=== PATIENT | female | born 1975 | race American Indian/Alaskan Native ===

== ENCOUNTER 2019-07-15 07:07 | Observation (INO) | payer OTHER ==
--- NOTE | 2019-07-13 11:54 | Anesthesia Consultation ---
Anesthesia Consult and Med Hx Date of service: 07/15/19 - Airway Anesthetic Teeth Evaluation: Good, Caps ROM Head & Neck: Adequate Mental/Hyoid Distance: Adequate Mallampati Class: Class II Intubation Access Assessment: Probably Good - Pre-Operative Health Status ASA Pre-Surgery Classification: ASA2 Proposed Anesthetic Plan: General Nerve Block: TAP - Cardiovascular System Hx Hypertension: Yes (x 5 yrs) - Central Nervous System Hx Psychiatric Problems: No - Hematic Hx Anemia: Yes (For Iron infusion 07/11/19) - Other Systems Hx Cancer: No - Additional Comments Anesthesia Medical History Comments: +PCP and cardiac clearance. Ran out of BP meds and went to ER because of elevated BP. Meds changed and better BP now
[2019-07-13 11:56] LABS: Basophils # (Auto) 0.1 K/mm3 (0.0-0.1); Basophils % (Auto) 1.5 % (0.0-1.8); Eosinophils # (Auto) 0.1 K/mm3 (0.0-0.4); Eosinophils % (Auto) 1.9 % (0.0-4.3); Hemoglobin 8.4 gm/dl (10.1-14.3); Lymphocytes # (Auto) 1.6 K/mm3 (1.2-5.4); Mean Corpuscular HGB Conc 30 % (30-34); Monocytes # (Auto) 0.7 K/mm3 (0.0-0.8); Monocytes % (Auto) 10.7 % (0.0-7.3); Platelet Count 475 K/mm3 (140-440); Red Blood Count 4.72 M/mm3 (3.65-5.03)
[2019-07-13 12:04] LABS: Calcium 9.7 mg/dL (8.4-10.2); Mean Corpuscular Volume 59 fl (79-97); Red Cell Distribution Width 21.5 % (13.2-15.2)
--- NOTE | 2019-07-14 17:27 | History and Physical Report ---
History of Present Illness Date of examination: 07/13/19 History of present illness: This is a 44 years old female who complains of continued menorrhagia and dysmenorrhea with the Mirena IUD that was placed for menorrhagia. Uses more than one pad per hour with additional use of tampon. Previously prescribed OCPs to take concurrently, but reports causes extended menses as long as two weeks at a time. Bleeds heavy 4/7days, she saturates a pad every hour on her heaviest days and even then will bleed into her clothes. Since having the Mirena placed she bleeds 2x/mnth occasionally.IUD removed 2015. With history of uncontrolled hypertension and no desire for fertility she now desires to proceed with hysterectomy. Past History : 1 Term Births: 0 Premature Births: 0 Living Children: 1 Para: 1 Mult. Births: 0 Prev : 1 Aborta: 0 Elect. Ab: 0 Spont. Ab: 0 Ectopics: 0 # 1 Delivery date: 1992 Delivery type: Sex: Male Comments: done for distress [employer] History Uterine Surgery (not C/S): negative Operations: (B) bunionectomy Hospitalizations: negative Anesthesia Complications: negative Abnormal PAP: negative Uterine Anomaly: negative MAXIMUS Exposure: negative Infertility: negative Infection History HIV Risk Eval: no TB exposure: no Personal hx. of genital herpes: no Partner hx. of genital herpes: no Rash/viral illness since LMP: no Hx of STD: None Active Medications (reviewed today): POTASSIUM CHLORIDE ER 10 MEQ ORAL TABLET EXTENDED RELEASE (POTASSIUM CHLORIDE) AMLODIPINE BESYLATE 10 MG ORAL TABLET (AMLODIPINE BESYLATE) FERROUS SULFATE 325 (65 FE) MG ORAL TABLET (FERROUS SULFATE) 1 po bid TRANEXAMIC ACID 650 MG ORAL TABLET (TRANEXAMIC ACID) 1300 mg(2 tabs) 3 times daily (3900 mg daily) for up to 5 days during monthly menstruation HYDROCHLOROTHIAZIDE 25 MG ORAL TABLET (HYDROCHLOROTHIAZIDE) 1 po qd Current Allergies (reviewed today): No known allergies Past Medical History: Reviewed history from 06/08/2019 and no changes required: Hypertension Anemia Past Surgical History: Reviewed history from 06/08/2019 and no changes required: (B) bunionectomy Family History Summary: Reviewed history Last on 03/25/2019 and no changes required:07/14/2019 Aunt - Has Family History Breast Cancer - maternal, - Entered On: 06/08/2019 Uncle - Has Family History of Stomach Cancer - maternal - Entered On: 06/08/2019 Father (biol.) - Has Family History of Pancreatic Cancer - age 49 - Entered On: 06/08/2019 Aunt - Has Family History of Stomach Cancer - paternal - Entered On: 06/24/2019 Aunt - Has Family History of Lung Cancer - paternal - Entered On: 07/13/2019 Other family member - Has No Family History of Biliary Tract Cancer - Entered On: 07/14/2019 Other family member - Has No Family History of Brain Cancer - Entered On: 09/13/2018 Other family member - Has No Family History of Colon Cancer - Entered On: 07/14/2019 Other family member - Has No Family History of Spontaneous DVT-PE - Entered On: 07/14/2019 Other family member - Has No Family History of Kidney/Urinary Tract Cancer - Entered On: 07/14/2019 Other family member - Has No Family History of Ovarvian Cancer - Entered On: 07/14/2019 Other family member - Has No Family History of Small Bowel Cancer - Entered On: 07/14/2019 Other family member - Has No Family History of Uterine Cancer - Entered On: 07/14/2019 General Comments - FH: Paternal aunt throat cancer Social History: Reviewed history from 06/08/2019 and no changes required: Patient is Smoking History: Patient has never smoked. Risk Factors: Smoked Tobacco Use: Never smoker Smokeless Tobacco Use: Never Passive smoke exposure: no Drug use: no HIV high-risk behavior: no Caffeine use: 0 drinks per day Alcohol use: no Exercise: no Seatbelt use: 100 % PAP Smear History: Date of Last PAP Smear: 03/16/2019 Previous Tobacco Use: Signed On - 06/08/2019 Smoked Tobacco Use: Never smoker Smokeless Tobacco Use: Never Passive smoke exposure: no Drug use: no HIV high-risk behavior: no Caffeine use: 1 drinks per day Previous Alcohol Use: Signed On - 06/08/2019 Alcohol use: no Exercise: no Seatbelt use: 100 % PAP Smear History: Date of Last PAP Smear: 03/16/2019 Physical Exam Appearance: well developed, well nourished, no acute distress Other Exams Lungs: no rales, rhonchi, or wheezes Heart: S1, S2, no murmur, rub, or gallop Abdomen: soft, non-tender, no masses, Genitourinary Exam Uterus: deferred for EUA Impression & Recommendations: Problem # 1: Excessive and frequent menstruation with irregular cycle (ICD- 626.6) (CCF76-F66.1) Diagnosis explained to patient . Discussed with patient various medical, surgical and radiological therapies common for treatment including, but not limited to, myomectomy, hysterectomy and uterine artery embolization. Discussed risks and benefits of laparotomy, laparoscopy, vaginal and robotic assisted approaches for hysterectomies. Patient desires definitive treatment in the form of robot assisted laparoscopic total hysterectomy. The risks and alternatives for this surgery were reviewed with the patient. She was informed of the risks of the surgery including, but not limited to, pain, infection, bleeding possibly heavy enough to require a blood transfusion with associated ri sks of infections (hepatitis and HIV) and transfusion reactions, possible damage to bowel, bladder or ureter(s). Patient understands that this surgery will make her sterile. Indications to abort a robotic/laparoscopic procedure and perform an open procedure were explained. Patient understands if her ovaries are removed she will become menopausal Questions answered. Consent reviewed and signed The patient was instructed/informed the following: The normal length of hospital stay for this procedure. Nothing to eat or drink after midnight the evening prior to surgery. Clear liquids the day before surgery. Pre-op instruction sheets given. Wound care instructions given. Problem # 2: Anemia secondary to blood loss (chronic) (ICD-280.0) (MVT28-A91.0) Problem # 3: Family History Breast Cancer (ICD-V16.3) (KOO05-G11.3) She desires ovarian conservation. She was informed she may require surgery later to have her ovaries removed for a benign or mailgnant condition. She declines hereditary cancer testing prior to surgery and understands she may be at a higher risk for devleoping ovarian cancer than the general population. Limitations for ovarian cancer screening emphasized and likelihood of late stage detection of ovarian cancer due these limitations that leads to poor prognosis emphasized. Patient voiced understanding and agrees with plan of care Medications Added to Medication List This Visit: 1) Potassium Chloride Er 10 Meq Oral Tablet Extended Release (Potassium chloride) 2) Amlodipine Besylate 10 Mg Oral Tablet (Amlodipine besylate) Medications and Allergies Allergies Allergy/AdvReac Type Severity Reaction Status Date / Time No Known Allergies Allergy Unverified 07/05/19 18:01 Home Medications Medication Instructions Recorded Confirmed Last Taken Type amLODIPine [Norvasc] 10 mg PO DAILY 07/05/19 07/05/19 Unknown History hydroCHLOROthiazide [HCTZ] 25 mg PO QDAY 07/05/19 07/05/19 Unknown History Potassium Chloride 10 meq PO DAILY 07/13/19 07/13/19 Unknown History Exam Vital Signs Temp Pulse Resp BP Pulse Ox 98.9 F 96 H 20 135/94 100 07/13/19 11:25 07/13/19 11:25 07/13/19 11:25 07/13/19 11:25 07/13/19 11:25 Results - Labs 07/13/19 11:44 07/13/19 11:44 Assessment and Plan - Patient Problems (1) Excessive and frequent menstruation with irregular cycle Status: Acute (2) Anemia, blood loss Status: Acute (3) Hypertension Status: Chronic (4) Adult BMI 31.0-31.9 kg/sq m Status: Chronic
[2019-07-15] MEDS ORDERED: BACTERIOSTATIC SODIUM CHLORIDE 0.9% 30 ML VIAL INFILTRATI ONE (07:29)
[2019-07-15] MEDS ORDERED: LACTATED RINGERS 1,000 ML ONE (07:30)
[2019-07-15] MEDS ORDERED: HYDROmorphone 1 MG/1 ML INJ IV PRN (08:12)
[2019-07-15] MEDS ORDERED: fentaNYL 100 MCG/2 ML INJ IV NR (08:12)
--- NOTE | 2019-07-15 08:12 | Anesthesia Day of Surgery ---
Anesthesia Day of Surgery - Day of Surgery Patient Examined: Yes Patient H&P Reviewed: Yes Patient is NPO: Yes
[2019-07-15] MEDS ORDERED: cloNIDine/PF 1,000 MCG/10 ML VIAL EP ONE (08:16)
[2019-07-15] MEDS ORDERED: BUPIVACAINE-EPINEPHRINE/PF 0.25%-1:200,000 (30 ML) VIAL INFILTRATI ONE (08:16)
[2019-07-15] MEDS ORDERED: dexAMETHasone 4 MG/ML VIAL ONE (08:16)
[2019-07-15] MEDS ORDERED: LACTATED RINGERS 1,000 ML IV SCH ×2 (09:00→15:36)
[2019-07-15] MEDS ORDERED: CELECOXIB 200 MG CAP PO NR (09:00)
[2019-07-15] MEDS ORDERED: MIDAZOLAM 2 MG/2 ML INJ IV NR (09:00)
[2019-07-15] MEDS ORDERED: GABAPENTIN 300 MG CAP PO NR (09:00)
[2019-07-15] MEDS ORDERED: ceFAZolin/STERILE WATER 2 GM/20 ML SYRINGE IV NR (11:00)
[2019-07-15] MEDS ORDERED: HYDROmorphone 1 MG/1 ML INJ ONE ×2 (11:01→14:30)
[2019-07-15] MEDS ORDERED: LIDOCAINE MPF (2%) 20 MG/1 ML VIAL 5 ML ONE (11:01)
[2019-07-15] MEDS ORDERED: PROPOFOL 200 MG/20 ML VIAL IV ONE (11:02)
[2019-07-15] MEDS ORDERED: ROCURONIUM 50 MG/5 ML INJ IV ONE (11:03)
[2019-07-15] MEDS ORDERED: NEOMY 40 MG/POLYMYXIN B 200,000 UNITS/ML (GU) AMPULE IR ONE ×3 (11:10→12:24)
[2019-07-15] MEDS ORDERED: SODIUM CHLORIDE 0.9% IRRIG SOLN 2000 ML IR ONE (12:24)
[2019-07-15] MEDS ORDERED: ONDANSETRON 4 MG/2 ML INJ ONE (13:09)
[2019-07-15] MEDS ORDERED: NEOSTIGMINE 10MG/10 ML INJ MDV ONE (13:09)
[2019-07-15] MEDS ORDERED: GLYCOPYRROLATE 0.4 MG/2 ML INJ ONE (13:09)
[2019-07-15] MEDS ORDERED: KETOROLAC 30 MG/1 ML INJ ONE (13:09)
[2019-07-15] MEDS ORDERED: ESMOLOL 100 MG/10 ML INJ IV ONE (13:09)
--- NOTE | 2019-07-15 13:35 | Operative Report ---
Operative Report Operative Report: Date: 07/15/2019 Preoperative diagnosis: 1. Menorrhagia 2. Chronic anemia due to blood loss 3. Body mass index of 30 kg/m 4. Chronic hypertension Postoperative diagnosis: 1. Menorrhagia 2. Chronic anemia due to blood loss 3. Body mass index of 30 kg/m 4. Chronic hypertension 5. Pelvic adhesions Procedure: 1. Robotic-assisted laparoscopic total hysterectomy with bilateral salpingectomy 2. Lysis of pelvic adhesions Surgeon: Martha Sampson MD Ceramics Teacher: Yenni Forde Anesthesiologist: Dr. Rolle Anesthesia: General endotracheal anesthesia EBL: Approximately minimum mL Findings: Uterus was sounded to 12 cm. Grossly normal tubes and left ovary. Enlarged right ovary consistent with simple ovarian cyst. Pelvic adhesions involving omentum to the anterior abdominal wall and anterior uterus adhered to the anterior abdominal wall as well. Procedure: Patient was taken to the OR and placed in the supine position. General anesthesia was induced and an oral gastric tube was placed. Her neck and head were placed on foam support. Foam eye protection with goggles were secured in place. Then foam face protection was placed and secured. Foam shoulder pads were then positioned on her shoulders for Trendelenburg positioning. She was then placed in dorsolithotomy position. Exam under anesthesia unremarkable, however difficult to palpate due to body mass index. The abdomen and vagina were then prepped and draped in the usual sterile fashion. Timeout was performed. A Bui catheter was inserted into the bladder with drainage of clear yellow urine. The operative speculum was introduced into the vagina and the anterior lip of the cervix was grasped with single-toothed tenaculum. The uterus was sounded to 12 cm. The cervix was progressively dilated to allow the medium V care uterine manipulator. The bulb of the manipulator was inflated and the speculum and tenaculum were removed. The cup of the manipulator was placed around the cervix and the blue occluder of the manipulator was properly positioned in the vagina. A laparotomy sponge that was saturated with a solution of polymyxin and saline was placed in the vagina to ensure pneumoperitoneum. Sterile gloves were placed and attention was turned to the abdomen. A 10 mm midline vertical supraumbilical incision was made approximately 10 cm superior to the elevated fundus of the uterus. A 12 mm trocar with the laparoscope and camera attached was introduced through this incision under direct visualization. The abdomen was insufflated. No obvious bowel, bladder, ureteral, or major vascular injury was noted. The patient was then placed in steep Trendelenburg position and the following trochars were placed under direct visualization: 8 mm robotic trochars were placed through incisions made in the bilateral midclavicular lower abdominal region approximately 10 cm lateral to the midline incision, and a 5 mm trocar was placed through an incision made in the right lower lateral pelvis. The 10 mm laparoscope was then replaced by a 5 mm laparoscope that was placed through the 5 millimeter lateral trocar. The 12 mm trocar was then removed and the Slava Roman fascial closure device was p laced through the incision and a 0 Vicryl was placed through the fascia. Once the suture was secured the 12 mm trocar was reintroduced. Once the trochars were in the appropriate positions, the da Petty robot system was engaged. The EndoShears and bipolar device was placed through the 8 mm trochars and positioned then attention was turned to the console. Omental tissue was attached to anterior abdominal wall. These adhesions were released without any complication. The uterus was elevated and bilateral salpingectomy was performed. Each tube was removed through the 5 mm trocar and sent to pathology in separate containers. Then the utero-ovarian ligaments were clamped. cauterized and incised bilaterally using 30 W of energy. Then the round ligaments were clamped, cauterized and incised bilaterally. The anterior uterine adhesion was released without any complication. The anterior leaf of the broad ligament was elevated and with careful blunt and sharp dissection the bladder flap was created and dissected away from the lower uterine segment and cervix. The posterior leaf of the broad ligament was dissected away from the uterine vessels. The cup of the uterine manipulator was palpated both anteriorly and posteriorly. The uterine vessels were then clamped and cauterized bilaterally. Blanching of the uterus was then noted. Attention was again turned to the anterior lower uterine segment and the bladder was confirmed to be away from the operative field. Then attention was turned again to the posterior where the cup of the manipulator was palpated and a colpotomy was performed down to the cup. The incision was extended in the lateral position to the uterine vessels that were again clamped and cauterized and incised. Continuing along the cup of the manipulator in a circumferential manner the colpotomy was completed. The uterus and cervix were then removed through the vaginal incision. The pelvis was irrigated with warm normal saline. A moist laparotomy sponge was placed in the vagina to maintain pneumoperitoneum. Attention was turned to the right ovary that was elevated and ovarian cystectomy was performed. The cyst were removed through the vagina. The pelvis was again copiously irrigated with warm normal saline. Hemostasis was obtained on the ovary with coagulation. The vagina cuff was reapproximated using V LOC 180 suture. Then a J stitch was performed to secure the suture. Again the pelvis was copiously irrigated with polymixin in warm normal saline. The laparotomy sponge was removed from the vagina. No obvious evidence of bowel, bladder, ureteral, or major vascular injury was noted. Once hemostasis was noted, platelet rich plasma was applied to the operative field to ensure hemostasis. Then platelet poor plasma was applied to the operative field to decrease formation of adhesions. Interceed was placed around both ovaries. Again hemostasis was noted. Then the instruments were removed, the robot was disengaged. The 12 mm trocar was removed and the fascia was ligated with the 0 Vicryl suture that was placed at the beginning of the procedure. The patient was taken out of Trendelenburg position, the abdomen was desufflated, the remaining trochars were removed. Incisions were reapproximated using 4-0 Monocryl in a subcuticular manner. . Surgiseal was placed over the other incisions. The vagina was then inspected, the cuff was palpated to be intact and no bleeding was noted and clear yellow urine was draining into the Bui bag from the bladder at the end of the procedure. Counts were correct 3.Patient was taken to recovery room in stable condition.
[2019-07-15] MEDS ORDERED: METOCLOPRAMIDE 10 MG TAB PO PRN (15:36)
[2019-07-15] MEDS ORDERED: ONDANSETRON 4 MG ODT TAB PO PRN (15:36)
[2019-07-15] MEDS ORDERED: ACETAMINOPHEN 325 MG TAB PO PRN (15:36)
[2019-07-15] MEDS ORDERED: MORPHINE 2 MG/1 ML INJ IV PRN (15:36)
[2019-07-15] MEDS ORDERED: ONDANSETRON 4 MG/2 ML INJ IV PRN (15:36)
[2019-07-15] MEDS ORDERED: METOCLOPRAMIDE 10 MG/2 ML INJ IV PRN (15:36)
[2019-07-15] MEDS ORDERED: ACETAMINOPHEN 650 MG RECT SUPP PR PRN (15:36)
[2019-07-15] MEDS ORDERED: MORPHINE 4 MG/1 ML INJ IV PRN (15:36)
--- NOTE | 2019-07-15 19:40 | Progress Note ---
Assessment and Plan Operative findings and procedure explained, plan of care discussed, questions encouraged and answered, she voiced understanding - Patient Problems (1) Excessive and frequent menstruation with irregular cycle Current Visit: No Status: Acute (2) Anemia, blood loss Current Visit: No Status: Acute (3) Hypertension Current Visit: No Status: Chronic (4) Adult BMI 31.0-31.9 kg/sq m Current Visit: No Status: Chronic Subjective - Subjective Date of service: 07/15/19 Principal diagnosis: DOS, s/p RALTH, (R) ov cystectomy, CHIDI, (B) salpingectomy Interval history: This is a 44 years old female who complains of continued menorrhagia and dysmenorrhea with the Mirena IUD that was placed for menorrhagia. Uses more than one pad per hour with additional use of tampon. Previously prescribed OCPs to take concurrently, but reports causes extended menses as long as two weeks at a time. Bleeds heavy 4/7days, she saturates a pad every hour on her heaviest days and even then will bleed into her clothes. Since having the Mirena placed she bleeds 2x/mnth occasionally.IUD removed 2015. With history of uncontrolled hypertension and no desire for fertility she now desires to proceed with hysterectomy. Past History : 1 Term Births: 0 Premature Births: 0 Living Children: 1 Para: 1 Mult. Births: 0 Prev : 1 Aborta: 0 Elect. Ab: 0 Spont. Ab: 0 Ectopics: 0 # 1 Delivery date: 1992 Delivery type: Infant Sex: Male Comments: done for distress [employer]ING [employer]INE [employer] History Uterine Surgery (not C/S): negative Operations: (B) bunionectomy Hospitalizations: negative Anesthesia Complications: negative Abnormal PAP: negative Uterine Anomaly: negative MAXIMUS Exposure: negative Infertility: negative Infection History HIV Risk Eval: no TB exposure: no Personal hx. of genital herpes: no Partner hx. of genital herpes: no Rash/viral illness since LMP: no Hx of STD: None Active Medications (reviewed today): POTASSIUM CHLORIDE ER 10 MEQ ORAL TABLET EXTENDED RELEASE (POTASSIUM CHLORIDE) AMLODIPINE BESYLATE 10 MG ORAL TABLET (AMLODIPINE BESYLATE) FERROUS SULFATE 325 (65 FE) MG ORAL TABLET (FERROUS SULFATE) 1 po bid TRANEXAMIC ACID 650 MG ORAL TABLET (TRANEXAMIC ACID) 1300 mg(2 tabs) 3 times daily (3900 mg daily) for up to 5 days during monthly menstruation HYDROCHLOROTHIAZIDE 25 MG ORAL TABLET (HYDROCHLOROTHIAZIDE) 1 po qd Current Allergies (reviewed today): No known allergies Past Medical History: Reviewed history from 06/08/2019 and no changes required: Hypertension Anemia Past Surgical History: Reviewed history from 06/08/2019 and no changes required: (B) bunionectomy Family History Summary: Reviewed history Last on 03/25/2019 and no changes required:07/14/2019 Aunt - Has Family History Breast Cancer - maternal, - Entered On: 06/08/2019 Uncle - Has Family History of Stomach Cancer - maternal - Entered On: 06/08/2019 Father (biol.) - Has Family History of Pancreatic Cancer - age 49 - Entered On: 06/08/2019 Aunt - Has Family History of Stomach Cancer - paternal - Entered On: 06/24/2019 Aunt - Has Family History of Lung Cancer - paternal - Entered On: 07/13/2019 Other family member - Has No Family History of Biliary Tract Cancer - Entered On: 07/14/2019 Other family member - Has No Family History of Brain Cancer - Entered On: 07/14/2019 Other family member - Has No Family History of Colon Cancer - Entered On: 07/14/2019 Other family member - Has No Family History of Spontaneous DVT-PE - Entered On: 07/14/2019 Other family member - Has No Family History of Kidney/Urinary Tract Cancer - Entered On: 07/14/2019 Other family member - Has No Family History of Ovarvian Cancer - Entered On: 07/14/2019 Other family member - Has No Family History of Small Bowel Cancer - Entered On: 07/14/2019 Other family member - Has No Family History of Uterine Cancer - Entered On: 07/14/2019 General Comments - FH: Paternal aunt throat cancer Social History: Reviewed history from 06/08/2019 and no changes required: Patient is Smoking History: Patient has never smoked. Risk Factors: Smoked Tobacco Use: Never smoker Smokeless Tobacco Use: Never Passive smoke exposure: no Drug use: no HIV high-risk behavior: no Caffeine use: 0 drinks per day Alcohol use: no Exercise: no Seatbelt use: 100 % PAP Smear History: Date of Last PAP Smear: 03/16/2019 Previous Tobacco Use: Signed On - 06/08/2019 Smoked Tobacco Use: Never smoker Smokeless Tobacco Use: Never Passive smoke exposure: no Drug use: no HIV high-risk behavior: no Caffeine use: 1 drinks per day Previous Alcohol Use: Signed On - 06/08/2019 Alcohol use: no Exercise: no Seatbelt use: 100 % PAP Smear History: Date of Last PAP Smear: 03/16/2019 Physical Exam Appearance: well developed, well nourished, no acute distress Other Exams Lungs: no rales, rhonchi, or wheezes Heart: S1, S2, no murmur, rub, or gallop Abdomen: soft, non-tender, no masses, Genitourinary Exam Uterus: deferred for EUA Impression & Recommendations: Problem # 1: Excessive and frequent menstruation with irregular cycle (ICD- 626.6) (SGP39-X92.1) Diagnosis explained to patient . Discussed with patient various medical, surgical and radiological therapies common for treatment including, but not limited to, myomectomy, hysterectomy and uterine artery embolization. Discussed risks and benefits of laparotomy, laparoscopy, vaginal and robotic assisted approaches for hysterectomies. Patient desires definitive treatment in the form of robot assisted laparoscopic total hysterectomy. The risks and alternatives for this surgery were reviewed with the patient. She was informed of the risks of the surgery including, but not limited to, pain, infection, bleeding possibly heavy enough to require a blood transfusion with associated risks of infections (hepatitis and HIV) and transfusion reactions, possible damage to bowel, bladder or ureter(s). Patient understands that this surgery will make her sterile. Indications to abort a robotic/laparoscopic procedure and perform an open procedure were explained. Patient understands if her ovaries are removed she will become menopausal Questions answered. Consent reviewed and signed The patient was instructed/informed the following: The normal length of hospital stay for this procedure. Nothing to eat or drink after midnight the evening prior to surgery. Clear liquids the day before surgery. Pre-op instruction sheets given. Wound care instructions given. Problem # 2: Anemia secondary to blood loss (chronic) (ICD-280.0) (NXY55-F61.0) Problem # 3: Family History Breast Cancer (ICD-V16.3) (GFH51-V18.3) She desires ovarian conservation. She was informed she may require surgery later to have her ovaries removed for a benign or mailgnant condition. She declines h ereditary cancer testing prior to surgery and understands she may be at a higher risk for devleoping ovarian cancer than the general population. Limitations for ovarian cancer screening emphasized and likelihood of late stage detection of ovarian cancer due these limitations that leads to poor prognosis emphasized. Patient voiced understanding and agrees with plan of care Medications Added to Medication List This Visit: 1) Potassium Chloride Er 10 Meq Oral Tablet Extended Release (Potassium chloride) 2) Amlodipine Besylate 10 Mg Oral Tablet (Amlodipine besylate) Patient reports: pain well controlled Objective - Vital Signs Latest vital signs: Vital Signs Temp Pulse Resp BP Pulse Ox 07/15/19 18:01 97.6 F 66 18 107/65 100 07/15/19 15:14 67 100 07/15/19 15:13 97.4 F L 78 20 110/73 96 07/15/19 15:00 97.4 F L 76 14 108/67 99 07/15/19 14:45 73 16 104/65 100 07/15/19 14:30 75 15 113/69 100 07/15/19 14:15 70 15 111/66 99 07/15/19 14:00 72 16 105/62 100 07/15/19 13:50 73 16 104/64 100 07/15/19 13:45 74 17 103/60 98 07/15/19 13:40 79 20 103/63 98 07/15/19 13:35 97.4 F L 79 16 107/64 97 07/15/19 10:25 95 H 16 128/72 99 07/15/19 10:21 105 H 16 133/73 99 07/15/19 10:16 104 H 12 112/64 98 07/15/19 10:11 98 H 12 116/59 99 07/15/19 10:06 103 H 16 121/64 100 07/15/19 10:00 99 H 16 126/78 99 07/15/19 09:56 16 07/15/19 09:55 95 H 16 124/68 99 07/15/19 08:40 16 07/15/19 07:21 98.7 F 96 H 22 136/90 100 07/15/19 07:20 98.7 F 96 H 22 136/90 100 Intake and Output 07/15/19 07/15/19 07/15/19 06:59 14:59 22:59 Intake Total 1050 200 Output Total 200 250 Balance 850 -50 Intake: IV 1050 Intake, Free Water 200 Output: Urine 200 250 Indwelling Catheter 150 Other: Total, Output Amount 150 Voiding Method Toilet Indwelling Catheter - Exam Narrative Exam: resting bed, no complaints Breasts: Present: deferred Cardiovascular: Present: Regular rate Lungs: Present: Clear to auscultation, Normal air movement Abdomen: Present: normal appearance, soft, normal bowel sounds. Absent: distention, tenderness Extremities: Present: normal
[2019-07-15] MEDS: ceFAZolin/NS 1 GM/50 ML 1 GM/50 ML BAG IV SCH (19:55)
[2019-07-15] MEDS: KETOROLAC 30 MG/1 ML INJ IV SCH (19:56)
[2019-07-16] MEDS: KETOROLAC 30 MG/1 ML INJ IV SCH (02:20)
[2019-07-16] MEDS: ceFAZolin/NS 1 GM/50 ML 1 GM/50 ML BAG IV SCH (03:53)
[2019-07-16 06:41] LABS: Hematocrit 24.1 % (30.3-42.9); Hemoglobin 7.3 gm/dl (10.1-14.3)
[2019-07-16 06:54] LABS: Calcium 8.3 mg/dL (8.4-10.2)
[2019-07-16] MEDS ORDERED: oxyCODONE /ACETAMINOPHEN 5-325MG TAB PO PRN (09:30)
[2019-07-16] MEDS ORDERED: NON-FORMULARY EACH (Potassium Chloride [Potassium Chloride] 10 MEQ) PO SCH (10:00)
[2019-07-16] MEDS ORDERED: amLODIPine 10 MG TAB PO SCH (10:00)
[2019-07-16] MEDS ORDERED: hydroCHLOROthiazide 25 MG TAB PO SCH (10:00)
[2019-07-16] MEDS ORDERED: POTASSIUM CHLORIDE ER 10 MEQ TAB PO SCH (10:00)
[2019-07-16] MEDS ORDERED: FERROUS SULFATE 325 MG TAB PO SCH (10:42)
[2019-07-16] MEDS ORDERED: DOCUSATE SODIUM 100 MG CAP PO SCH (11:00)
--- NOTE | 2019-07-16 11:02 | Post Anesthesia Evaluation ---
- Post Anesthesia Evaluation Patient Participated: Yes Airway Patent: Yes Stable Respiratory Function: Yes Nausea/Vomiting: No Temp > 96.8F: Yes Pain Manageable: Yes Adequeate Hydration: Yes Anesthesia Complications: No Block Receding Appropriately: Yes Patient on Ventilator: No
--- NOTE | 2019-07-16 11:45 | Discharge Summary ---
Providers - Providers Date of Admission: 07/15/19 13:20 Date of discharge: 07/16/19 Attending physician: REAL EASON Primary care physician: HARSH ESPITIA MD Hospitalization Condition: Good Procedures: RATH, (B) salpingectomy. [facility] course: Unremarkable. Patient resting in bed, ambulating, voiding and tolerating regular diet without difficulty. She denies lightheadedness and dizziness with ambulating. No bleeding. States her went to the ED to be evaluated for the flu. Disposition: DC-01 TO HOME OR SELFCARE - Discharge Diagnoses (1) History of robot-assisted laparoscopic hysterectomy Status: Acute (2) Anemia, blood loss Status: Chronic Comment: stable (3) Excessive and frequent menstruation with irregular cycle Status: Resolved (4) Hypertension Status: Chronic (5) Adult BMI 31.0-31.9 kg/sq m Status: Chronic Core Measure Documentation - Palliative Care Palliative Care/ Comfort Measures: Not Applicable - Core Measures Any of the following diagnoses?: none Exam - Physical Exam Narrative exam: Doing well, desires d/c home - Constitutional Vitals: Temp Pulse Resp BP Pulse Ox 99.1 F 85 18 114/71 97 07/16/19 07:47 07/16/19 09:39 07/16/19 07:47 07/16/19 09:39 07/16/19 07:47 General appearance: Present: no acute distress - Respiratory Respiratory effort: normal Respiratory: bilateral: CTA - Cardiovascular Rhythm: regular - Extremities Extremities: no ischemia, No edema - Abdominal General gastrointestinal: Present: soft, non-tender, non-distended, normal bowel sounds Female genitourinary: Present: deferred - Integumentary Integumentary: Present: clear, warm, dry (Incisions c/d/i, no s/s infection) - Psychiatric Psychiatric: appropriate mood/affect, intact judgment & insight, memory intact, cooperative - Neurologic Neurologic: CNII-XII intact Plan Activity: other (No sex, no driving, no exercise. Ambulate ~1 mile on your property a day, Void and use your Incentive spirometer every hour. Have someone assist you when you shower. Stay on y our property until you follow up with your Provider unles you have an emergency) Weight Bearing Status: Full Weight Bearing Diet: low salt (Eat small meals frequently, drink ~80oz water a day. ) Wound: open to air, keep clean and dry Special Instructions: no heavy lifting (greater than 25lbs) Care Plan Goals: follow as scheduled Plan of Treatment: see discharge instructions Health Concerns: anemia Follow up with: HARSH ESPITIA MD [Primary Care Provider] - 3 Days REAL EASON MD [Staff Physician] - (As scheduled) Prescriptions: Docusate Sodium [Colace CAP] 100 mg PO DAILY #30 capsule Ferrous Sulfate [Feosol 325 MG tab] 325 mg PO TID #60 tablet oxyCODONE /ACETAMINOPHEN [Percocet 5/325 mg] 1 - 2 tab PO Q6H PRN #20 tablet PRN Reason: Pain, Moderate (4-6)
[2019-07-16 15:57] VITALS: BP 124/78
[2019-07-16] MEDS ORDERED: FLU VACC QUAD 2019-20 (3 YR UP)/PF 60 MCG/0.5 ML SYRINGE IM ONE (16:00)
== END 2019-07-16 16:25 | disposition home or self-care (01) ==
LOC: OR 07:07 → OB 13:20
PROVIDERS: ADMIT Obstetrics & Gynecology; ATTEND Obstetrics & Gynecology
DX: N92.1 Excessive and frequent menstruation with irregular cycle (principal); I10 Essential (primary) hypertension; D50.0 Iron deficiency anemia secondary to blood loss (chronic); Z79.899 Other long term (current) drug therapy
CPT/HCPCS: 36415; 58573; 58662; 64450; 80048; 81025; 85014; 85018; 85025; 86850; 86900; 86901; 88302; 88305; 88307; 90686; 96365; 96366; 96375; 96376; A4217; C1765; G0378; J0690; J0735; J1100; J1170; J1885; J2250; J2270; J2405; J2704; J2710; J3010; J7120; S2900